=== PATIENT | male | born 1950 | race Caucasian/White ===

== ENCOUNTER 2017-07-22 19:55 | Inpatient (IN) | payer MEDICARE, OTHER ==
[~2017-07-22] VITALS: Ht 177.8 cm; Wt 84.7 kg
[2017-07-22 20:57] LABS: COLLECTION METHOD CLEAN CATCH
[2017-07-22 20:58] LABS: HEMATOCRIT 47.5 % (42.0-52.0); HEMOGLOBIN 16.5 g/dl (13.5-18.0); MEAN CELL VOLUME 86 fl (80.0-100.0); MEAN CORPUSCULAR HEMOGLOBIN 30 pg (27.0-31.0); MEAN CORPUSCULAR HGB CONC 35 g/dl (33.0-37.0); MEAN PLATELET VOLUME 10.7 fl (7.4-10.4); PLATELET COUNT 239 K/mm3 (130-400); RED BLOOD COUNT 5.53 M/mm3 (4.20-5.60); REDCELL DISTRIBUTION WIDTH-CV 13.6 % (11.5-14.5)
[2017-07-22 21:05] LABS: MUCOUS Present /lpf; PH 5 (5-8); SQUAMOUS EPITHELIAL 0-2 /hpf; URINE APPEARANCE Hazy; URINE BACTERIA Rare /hpf; URINE BILIRUBIN Negative (NEGATIVE); URINE BLOOD Negative (NEGATIVE); URINE COLOR Amber; URINE GLUCOSE Negative (NEGATIVE); URINE KETONE Trace (NEGATIVE); URINE LEUKOCYTE ESTERASE Negative (NEGATIVE); URINE NITRATE Negative (NEGATIVE); URINE PROTEIN(semi-quant) 2+ (NEGATIVE); URINE UROBILINOGEN >=4.0 mg/dL (NEGATIVE)
[2017-07-22 21:10] LABS: BAND 24 % (0-10); LYMPHOCYTE 5 % (20.0-51.0); NEUTROPHILS 54 % (42.0-75.2)
[2017-07-22 21:11] LABS: ALBUMIN 3.9 gm/dL (3.5-5.0); BILIRUBIN,TOTAL 1.3 mg/dL (0.0-1.0); CALCIUM 9.6 mg/dL (8.4-10.2); CREATININE, serum 0.97 mg/dL (0.66-1.25); PLATELET ESTIMATE NORMAL (NORMAL); POTASSIUM 3.5 mmol/L (3.4-5.0); TOTAL PROTEIN 7.8 gm/dL (6.4-8.2)
[2017-07-22 21:42] LABS: C-REACTIVE PROTEIN 36.8 mg/dL (0.0-0.9)
[2017-07-23] VITALS (17 sets, daily range): BP systolic 88–148; BP diastolic 41–73; PULSE 80–101; TEMP 96.6–99
[2017-07-23 09:23] LABS: BASO # 0.1 (0.0-0.2); BASO % 0.3 % (0.0-2.0); GRAN # 22.1 (1.4-6.5); GRAN % 92.8 % (42.2-75.2); HEMOGLOBIN 17.6 g/dl (13.5-18.0); LYMPH # 0.6 (1.2-3.4); LYMPH % 2.6 % (20.0-51.0); MEAN CELL VOLUME 89 fl (80.0-100.0); MEAN CORPUSCULAR HEMOGLOBIN 30 pg (27.0-31.0); MEAN CORPUSCULAR HGB CONC 34 g/dl (33.0-37.0); MONO # 0.8 (0.1-0.6); MONO % 3.4 % (1.7-9.3); PLATELET COUNT 316 K/mm3 (130-400); RED BLOOD COUNT 5.89 M/mm3 (4.20-5.60); REDCELL DISTRIBUTION WIDTH-CV 14.3 % (11.5-14.5)
[2017-07-23 09:33] LABS: ALBUMIN 2.8 gm/dL (3.5-5.0); BILIRUBIN,TOTAL 1.4 mg/dL (0.0-1.0); CALCIUM 7.8 mg/dL (8.4-10.2); CREATININE, serum 1.17 mg/dL (0.66-1.25); POTASSIUM 3.8 mmol/L (3.4-5.0)
[2017-07-23 11:21] LABS: HEMATOCRIT 52.2 % (42.0-52.0)
[2017-07-24 00:45] VITALS: BP 105/68; PULSE 97; TEMP 98
[2017-07-24 03:55] VITALS: BP 107/57; PULSE 98; TEMP 97.7
[2017-07-24 07:05] LABS: HEMATOCRIT 40.4 % (42.0-52.0); MEAN CELL VOLUME 91 fl (80.0-100.0); MEAN CORPUSCULAR HEMOGLOBIN 30 pg (27.0-31.0); MEAN CORPUSCULAR HGB CONC 33 g/dl (33.0-37.0); MEAN PLATELET VOLUME 10.9 fl (7.4-10.4); PLATELET COUNT 280 K/mm3 (130-400); RED BLOOD COUNT 4.46 M/mm3 (4.20-5.60); REDCELL DISTRIBUTION WIDTH-CV 14.8 % (11.5-14.5)
[2017-07-24 07:28] LABS: CREATININE, serum 1.23 mg/dL (0.66-1.25); HEMOGLOBIN 13.5 g/dl (13.5-18.0); POTASSIUM 4.3 mmol/L (3.4-5.0)
[2017-07-24 08:03] VITALS: BP 123/68; PULSE 97; TEMP 97.3
[2017-07-24 10:49] LABS: BAND 62 % (0-10); LYMPHOCYTE 2 % (20.0-51.0); NEUTROPHILS 33 % (42.0-75.2); PLATELET ESTIMATE NORMAL (NORMAL)
[2017-07-24 14:07] VITALS: BP 121/71; PULSE 105; TEMP 98.6
[2017-07-24 17:51] VITALS: BP 134/71; PULSE 100; TEMP 98.5
[2017-07-24 21:11] VITALS: BP 102/54; PULSE 95; TEMP 98
[2017-07-25 01:55] VITALS: BP 133/62; PULSE 91; TEMP 98.2
[2017-07-25 05:21] VITALS: BP 141/81; PULSE 79; TEMP 98.9
[2017-07-25 06:38] LABS: HEMATOCRIT 42.9 % (42.0-52.0); MEAN CELL VOLUME 91 fl (80.0-100.0); MEAN CORPUSCULAR HEMOGLOBIN 30 pg (27.0-31.0); MEAN CORPUSCULAR HGB CONC 33 g/dl (33.0-37.0); MEAN PLATELET VOLUME 10.4 fl (7.4-10.4); PLATELET COUNT 265 K/mm3 (130-400); RED BLOOD COUNT 4.74 M/mm3 (4.20-5.60); REDCELL DISTRIBUTION WIDTH-CV 14.9 % (11.5-14.5)
[2017-07-25 06:49] LABS: CALCIUM 7.3 mg/dL (8.4-10.2); CREATININE, serum 0.86 mg/dL (0.66-1.25); MAGNESIUM 3.1 mg/dL (1.6-2.3); POTASSIUM 4.1 mmol/L (3.4-5.0)
[2017-07-25 07:56] LABS: BAND 6 % (0-10); LYMPHOCYTE 6 % (20.0-51.0); NEUTROPHILS 84 % (42.0-75.2); PLATELET ESTIMATE NORMAL (NORMAL)
[2017-07-25 07:57] LABS: HYPOCHROMIA 1+
[2017-07-25 09:25] VITALS: BP 113/63; PULSE 84; TEMP 97.6
[2017-07-25 14:58] VITALS: BP 128/74; PULSE 96; TEMP 98.7
[2017-07-25 17:23] VITALS: BP 188/70; PULSE 93; TEMP 98.7
[2017-07-25 21:34] VITALS: BP 137/73; PULSE 96; TEMP 98.1
[2017-07-26 04:39] VITALS: BP 128/76; PULSE 92; TEMP 98.2
[2017-07-26 07:48] LABS: HEMATOCRIT 39.4 % (42.0-52.0); HEMOGLOBIN 13.3 g/dl (13.5-18.0); MEAN CELL VOLUME 88 fl (80.0-100.0); MEAN CORPUSCULAR HEMOGLOBIN 30 pg (27.0-31.0); MEAN CORPUSCULAR HGB CONC 34 g/dl (33.0-37.0); MEAN PLATELET VOLUME 10.9 fl (7.4-10.4); PLATELET COUNT 288 K/mm3 (130-400); RED BLOOD COUNT 4.49 M/mm3 (4.20-5.60); REDCELL DISTRIBUTION WIDTH-CV 14.8 % (11.5-14.5)
[2017-07-26 07:55] LABS: CREATININE, serum 0.74 mg/dL (0.66-1.25); POTASSIUM 3.9 mmol/L (3.4-5.0)
[2017-07-26 09:41] LABS: BAND 4 % (0-10); EOSINOPHIL 1 % (0-4); LYMPHOCYTE 3 % (20.0-51.0); NEUTROPHILS 86 % (42.0-75.2); PLATELET ESTIMATE NORMAL (NORMAL)
[2017-07-26 10:14] VITALS: BP 134/82; PULSE 94; TEMP 98
[2017-07-26 13:26] VITALS: BP 130/76; PULSE 94; TEMP 97.9
[2017-07-26 17:18] VITALS: BP 135/75; PULSE 93; TEMP 98.1
[2017-07-26 21:45] VITALS: BP 137/79; PULSE 90; TEMP 98
[2017-07-27 01:37] VITALS: BP 119/70; PULSE 92; TEMP 98.3
[2017-07-27 05:23] VITALS: BP 136/77; PULSE 90; TEMP 98.5
[2017-07-27 07:42] LABS: HEMATOCRIT 39.6 % (42.0-52.0); HEMOGLOBIN 13.3 g/dl (13.5-18.0); MEAN CELL VOLUME 88 fl (80.0-100.0); MEAN CORPUSCULAR HEMOGLOBIN 30 pg (27.0-31.0); MEAN CORPUSCULAR HGB CONC 34 g/dl (33.0-37.0); MEAN PLATELET VOLUME 10.6 fl (7.4-10.4); PLATELET COUNT 305 K/mm3 (130-400); RED BLOOD COUNT 4.48 M/mm3 (4.20-5.60); REDCELL DISTRIBUTION WIDTH-CV 14.9 % (11.5-14.5)
[2017-07-27 08:02] LABS: CALCIUM 7.3 mg/dL (8.4-10.2); CREATININE, serum 0.72 mg/dL (0.66-1.25); POTASSIUM 3.9 mmol/L (3.4-5.0)
[2017-07-27 10:10] LABS: BAND 10 % (0-10); BASOPHIL 1 % (0-2); LYMPHOCYTE 8 % (20.0-51.0); NEUTROPHILS 80 % (42.0-75.2)
[2017-07-27 10:11] LABS: PLATELET ESTIMATE NORMAL (NORMAL); TOXIC GRANULATION PRESENT
[2017-07-27 10:34] VITALS: BP 140/82; PULSE 88; TEMP 98.3
[2017-07-27 14:37] VITALS: BP 113/68; PULSE 86; TEMP 96.4
[2017-07-27 17:45] VITALS: BP 132/76; PULSE 74; TEMP 97.6
[2017-07-27 21:57] VITALS: BP 132/78; PULSE 82; TEMP 98.4
[2017-07-28] VITALS (14 sets, daily range): BP systolic 99–146; BP diastolic 60–76; PULSE 67–112; TEMP 97.6–99
[2017-07-28 06:50] LABS: HEMATOCRIT 39.4 % (42.0-52.0); HEMOGLOBIN 12.9 g/dl (13.5-18.0); MEAN CELL VOLUME 90 fl (80.0-100.0); MEAN CORPUSCULAR HEMOGLOBIN 29 pg (27.0-31.0); MEAN CORPUSCULAR HGB CONC 33 g/dl (33.0-37.0); MEAN PLATELET VOLUME 10.9 fl (7.4-10.4); PLATELET COUNT 310 K/mm3 (130-400); REDCELL DISTRIBUTION WIDTH-CV 15.2 % (11.5-14.5)
[2017-07-28 07:02] LABS: CALCIUM 7.4 mg/dL (8.4-10.2); CREATININE, serum 0.72 mg/dL (0.66-1.25); POTASSIUM 4.3 mmol/L (3.4-5.0)
[2017-07-28 08:03] LABS: BAND 19 % (0-10); LYMPHOCYTE 5 % (20.0-51.0); NEUTROPHILS 75 % (42.0-75.2); PLATELET ESTIMATE NORMAL (NORMAL); TOXIC GRANULATION PRESENT
[2017-07-29 01:42] VITALS: BP 122/70; PULSE 80; TEMP 98.3
[2017-07-29 05:25] VITALS: BP 128/64; PULSE 84; TEMP 98.8
[2017-07-29 06:47] LABS: MEAN CELL VOLUME 89 fl (80.0-100.0); MEAN CORPUSCULAR HGB CONC 33 g/dl (33.0-37.0); MEAN PLATELET VOLUME 10.9 fl (7.4-10.4); PLATELET COUNT 331 K/mm3 (130-400); RED BLOOD COUNT 4.04 M/mm3 (4.20-5.60); REDCELL DISTRIBUTION WIDTH-CV 15.3 % (11.5-14.5)
[2017-07-29 06:51] LABS: HEMOGLOBIN 11.9 g/dl (13.5-18.0); MEAN CORPUSCULAR HEMOGLOBIN 29 pg (27.0-31.0)
[2017-07-29 07:00] VITALS: BP 120/65; PULSE 82; TEMP 97.1
[2017-07-29 07:08] LABS: CALCIUM 7.4 mg/dL (8.4-10.2); CREATININE, serum 0.71 mg/dL (0.66-1.25)
[2017-07-29 08:47] LABS: BAND 2 % (0-10); EOSINOPHIL 2 % (0-4); LYMPHOCYTE 5 % (20.0-51.0); NEUTROPHILS 85 % (42.0-75.2); PLATELET ESTIMATE NORMAL (NORMAL)
[2017-07-29 10:30] VITALS: BP 103/61; PULSE 82; TEMP 97.6
[2017-07-29 13:39] VITALS: BP 110/68; PULSE 84; TEMP 97.5
[2017-07-29 17:50] VITALS: BP 125/67; PULSE 77; TEMP 98.3
[2017-07-30 02:51] VITALS: BP 110/53; PULSE 98; TEMP 98.1
[2017-07-30 06:02] VITALS: BP 125/62; PULSE 86; TEMP 98.4
[2017-07-30 07:06] LABS: HEMATOCRIT 40.8 % (42.0-52.0); HEMOGLOBIN 13.4 g/dl (13.5-18.0); MEAN CELL VOLUME 90 fl (80.0-100.0); MEAN CORPUSCULAR HEMOGLOBIN 30 pg (27.0-31.0); MEAN CORPUSCULAR HGB CONC 33 g/dl (33.0-37.0); MEAN PLATELET VOLUME 11.1 fl (7.4-10.4); RED BLOOD COUNT 4.55 M/mm3 (4.20-5.60); REDCELL DISTRIBUTION WIDTH-CV 15.4 % (11.5-14.5)
[2017-07-30 07:12] LABS: PLATELET COUNT 440 K/mm3 (130-400)
[2017-07-30 07:16] LABS: CALCIUM 7.6 mg/dL (8.4-10.2); CREATININE, serum 0.72 mg/dL (0.66-1.25); POTASSIUM 4.2 mmol/L (3.4-5.0)
[2017-07-30 07:59] LABS: BAND 7 % (0-10); LYMPHOCYTE 4 % (20.0-51.0); NEUTROPHILS 87 % (42.0-75.2); PLATELET ESTIMATE NORMAL (NORMAL)
[2017-07-30 13:37] VITALS: BP 114/59; PULSE 78; TEMP 97.9
[2017-07-30 17:57] VITALS: BP 132/72; PULSE 80; TEMP 98.4
[2017-07-30 21:07] VITALS: BP 131/63; PULSE 84; TEMP 98.3
[2017-07-31] VITALS (7 sets, daily range): BP systolic 106–142; BP diastolic 52–74; PULSE 46–91; TEMP 97.4–98.7
[2017-07-31 07:02] LABS: HEMATOCRIT 37.1 % (42.0-52.0); HEMOGLOBIN 12.1 g/dl (13.5-18.0); MEAN CELL VOLUME 90 fl (80.0-100.0); MEAN CORPUSCULAR HEMOGLOBIN 29 pg (27.0-31.0); MEAN CORPUSCULAR HGB CONC 33 g/dl (33.0-37.0); MEAN PLATELET VOLUME 10.6 fl (7.4-10.4); PLATELET COUNT 447 K/mm3 (130-400); RED BLOOD COUNT 4.12 M/mm3 (4.20-5.60); REDCELL DISTRIBUTION WIDTH-CV 15.4 % (11.5-14.5)
[2017-07-31 07:18] LABS: CALCIUM 7.3 mg/dL (8.4-10.2); CREATININE, serum 0.72 mg/dL (0.66-1.25); POTASSIUM 4.1 mmol/L (3.4-5.0)
[2017-07-31 09:54] LABS: BAND 6 % (0-10); EOSINOPHIL 1 % (0-4); LYMPHOCYTE 7 % (20.0-51.0); NEUTROPHILS 80 % (42.0-75.2)
[2017-07-31 09:57] LABS: PLATELET ESTIMATE INCREASED (NORMAL)
[2017-07-31 09:58] LABS: HYPOCHROMIA 1+
[2017-08-01 01:38] VITALS: BP 138/64; PULSE 86; TEMP 98
[2017-08-01 04:40] VITALS: BP 120/63; PULSE 83; TEMP 98.3
[2017-08-01 06:43] LABS: MEAN CELL VOLUME 89 fl (80.0-100.0); MEAN CORPUSCULAR HGB CONC 33 g/dl (33.0-37.0); MEAN PLATELET VOLUME 10.5 fl (7.4-10.4); PLATELET COUNT 514 K/mm3 (130-400); RED BLOOD COUNT 4.08 M/mm3 (4.20-5.60); REDCELL DISTRIBUTION WIDTH-CV 15.2 % (11.5-14.5)
[2017-08-01 06:49] LABS: HEMATOCRIT 36.1 % (42.0-52.0); HEMOGLOBIN 11.9 g/dl (13.5-18.0); MEAN CORPUSCULAR HEMOGLOBIN 29 pg (27.0-31.0)
[2017-08-01 06:50] LABS: CALCIUM 7.3 mg/dL (8.4-10.2); CREATININE, serum 0.72 mg/dL (0.66-1.25); POTASSIUM 3.8 mmol/L (3.4-5.0)
[2017-08-01 09:09] VITALS: BP 112/54; PULSE 89; TEMP 98.3
[2017-08-01 09:22] LABS: BAND 13 % (0-10); LYMPHOCYTE 12 % (20.0-51.0); NEUTROPHILS 74 % (42.0-75.2)
[2017-08-01 09:23] LABS: PLATELET ESTIMATE INCREASED (NORMAL)
[2017-08-01] MEDS ORDERED: ZYVOX 600MG600 MG PO (10:01)
[2017-08-01] MEDS ORDERED: NORCO 325 MG-51 TAB PO (10:03)
[2017-08-01 14:14] VITALS: BP 115/68; PULSE 75; TEMP 98.4
[2017-08-01 17:43] VITALS: BP 116/65; BP 116/653; PULSE 86; TEMP 98.1
== END 2017-08-01 18:45 | disposition home or self-care (01) | DRG 853 ==
LOC: COL.ER 19:55 → SURG 22:49 → JCC 22:49 → SURG 07-23 17:00
PROVIDERS: Emergency Medicine; Nurse Practitioner Family; Physician Assistant; Surgery
PROC: 0DBB0ZZ Excision of Ileum, Open Approach (ICD-10-PCS; principal; 2017-07-22 23:30)
PROC: 0D7 Gastrointestinal System, Dilation (ICD-10-PCS; 2017-07-28)
PROC: 0D9 Gastrointestinal System, Drainage (ICD-10-PCS; 2017-07-28)
DX: A41.9 Sepsis, unspecified organism (principal); K65.1 Peritoneal abscess; T81.4XXA Infection following a procedure, initial encounter; E87.1 Hypo-osmolality and hyponatremia; K56.7 Ileus, unspecified; T18.3XXA Foreign body in small intestine, initial encounter; L08.9 Local infection of the skin and subcutaneous tissue, unspecified; E88.09 Other disorders of plasma-protein metabolism, not elsewhere classified; R09.02 Hypoxemia; F17.220 Nicotine dependence, chewing tobacco, uncomplicated
CPT/HCPCS: 99223; 99232-AI; 99233-AI; A4314; A9284; C1729; J0171; J0696; J1650; J2060; J2250; J2270; J2405; J2704; J2710; J3010; J3480; J7030; J7040; J7050; Q9967

== ENCOUNTER 2019-07-29 13:56 | Inpatient (IN) | payer MEDICARE, OTHER ==
[~2019-07-29] VITALS: Ht 177.8 cm; Wt 90.9 kg
[~2019-07-29 13:56] MED LIST: NORCO 325 MG-51 TAB PO; ZYVOX 600MG600 MG PO
[2019-07-29 14:51] LABS: HEMOGLOBIN 14.4 g/dl (13.5-18.0); MEAN CELL VOLUME 86 fl (80.0-100.0); MEAN CORPUSCULAR HEMOGLOBIN 29 pg (27.0-31.0); MEAN CORPUSCULAR HGB CONC 34 g/dl (33.0-37.0); MEAN PLATELET VOLUME 12.4 fl (7.4-10.4); PLATELET COUNT 259 K/mm3 (130-400); REDCELL DISTRIBUTION WIDTH-CV 15.2 % (11.5-14.5)
[2019-07-29 14:55] LABS: INR 1.7 (0.8-3.0); PROTHROMBIN TIME 20.4 SECONDS (9.7-12.8)
[2019-07-29 14:57] LABS: PARTIAL THROMBOPLASTIN TIME 28.7 SECONDS (26.0-37.0)
[2019-07-29 15:04] LABS: ALANINE AMINOTRANSFERASE 144 U/L (21-72); ALBUMIN 3.9 gm/dL (3.5-5.0); ALKALINE PHOSPHATASE 297 U/L (50-136); ANION GAP 16 mmol/L (7-16); AST,SGOT 179 U/L (15-37); BILIRUBIN,TOTAL 19.6 mg/dL (0.0-1.0); BLOOD UREA NITROGEN 32 mg/dL (9-20); CALCIUM 8.7 mg/dL (8.4-10.2); CARBON DIOXIDE 21 mmol/L (22-30); CHLORIDE 98 mmol/L (98-107); CREATININE, serum 1.01 (0.66-1.25); GLUCOSE 110 mg/dL (74-106); LIPASE 155 U/L (23-300); SODIUM 135 mmol/L (137-145); TOTAL PROTEIN 8.9 gm/dL (6.4-8.2)
[2019-07-29 15:24] LABS: TROPONIN-I < 0.012 ng/mL (0.000-0.035)
[2019-07-29 15:25] LABS: C-REACTIVE PROTEIN 21.7 mg/dL (0.0-0.9)
[2019-07-29 15:28] LABS: POTASSIUM 3.5 mmol/L (3.4-5.0)
[2019-07-29 16:22] LABS: BAND 8 % (0-10); LYMPHOCYTE 8 % (20.0-51.0); NEUTROPHILS 77 % (42.0-75.2); PLATELET ESTIMATE NORMAL (NORMAL)
[2019-07-29 16:23] LABS: ANISOCYTOSIS 1+
[2019-07-29 20:26] LABS: COLLECTION METHOD CLEAN CATCH
[2019-07-29 20:40] LABS: MUCOUS Present /lpf; PH 6 (5-8); SQUAMOUS EPITHELIAL 0-2 /hpf; URINE APPEARANCE Hazy; URINE BACTERIA None Seen /hpf; URINE BILIRUBIN Positive (NEGATIVE); URINE BLOOD 1+ (NEGATIVE); URINE COLOR Amber; URINE GLUCOSE Negative (NEGATIVE); URINE KETONE Trace (NEGATIVE); URINE LEUKOCYTE ESTERASE Negative (NEGATIVE); URINE NITRATE Negative (NEGATIVE); URINE PROTEIN(semi-quant) 1+ (NEGATIVE); URINE UROBILINOGEN >=4.0 mg/dL (NEGATIVE)
--- NOTE | 2019-07-29 21:08 | NUR ---
PT report received from ED nurse regarding PT admission to unit and transfer from ED. Upon arrival to the unit PT is educated on room orientation, how to use call light which is within reach. Will continue to monitor.
[2019-07-29 21:22] VITALS: BP 114/63; PULSE 86; TEMP 98.4
[2019-07-29 23:36] VITALS: BP 109/65; PULSE 90; TEMP 99.2
[2019-07-30] VITALS (9 sets, daily range): BP systolic 105–121; BP diastolic 58–84; PULSE 57–81; TEMP 98.1–99.4
--- NOTE | 2019-07-30 04:30 | NUR ---
PT awake in bed during rounds. PT reports that he has no pain but needs to use restroom. Upon returning to bed PT states he does not want to wear his SCD's "for now". Education provided on purpose of SCD's to reduce risk of DVT with example used about how there are reports of increased risk of DVT while stationary on a plane and PT will be stationary longer than that while inpatient. PT states understanding and replies that "maybe later" he will put them back on when his legs have had a rest.
--- NOTE | 2019-07-30 05:33 | NUR ---
PT educated on consent for ERCP in am and consent form signed. PT states understanding of education.
--- NOTE | 2019-07-30 05:50 | NUR ---
NS bag still infusing D/T IV antibiotics interupting continous NS infusion. Will provide report to dayshift Nurse regarding need to scan and start bag when empty.
--- NOTE | 2019-07-30 06:58 | NUR ---
PT REPORT GIVEN TO ROSSI BRADSHAW. PT RESTING IN BED PEACEFULLY WITH EYES OPEN AND NO WANTS/NEEDS AT THIS TIME.
[2019-07-30 09:05] LABS: MEAN CELL VOLUME 87 fl (80.0-100.0); MEAN CORPUSCULAR HGB CONC 34 g/dl (33.0-37.0); PLATELET COUNT 269 K/mm3 (130-400); RED BLOOD COUNT 4.09 M/mm3 (4.20-5.60); REDCELL DISTRIBUTION WIDTH-CV 15.5 % (11.5-14.5)
[2019-07-30 09:07] LABS: HEMATOCRIT 35.4 % (42.0-52.0); MEAN CORPUSCULAR HEMOGLOBIN 29 pg (27.0-31.0)
[2019-07-30 09:12] LABS: ALBUMIN 2.9 gm/dL (3.5-5.0); BILIRUBIN UNCONJUGATED 1.5 mg/dL (0.0-1.1); BILIRUBIN,DIRECT 14.4 mg/dL (0.0-0.4); CALCIUM 7.7 mg/dL (8.4-10.2); POTASSIUM 3.5 mmol/L (3.4-5.0); TOTAL PROTEIN 6.9 gm/dL (6.4-8.2)
[2019-07-30 10:15] LABS: BAND 5 % (0-10); LYMPHOCYTE 7 % (20.0-51.0); NEUTROPHILS 83 % (42.0-75.2); PLATELET ESTIMATE NORMAL (NORMAL)
--- NOTE | 2019-07-30 14:49 | NUR ---
Plan: To return home. Patient [place] of [facility] in [facility]. SM reproted that he does not have a care support, and did not want to list anyone as his EMR. Patient also declined a DPOA at this time. Assess: SW met with patient at his bedside. Patient reported that he does not utilize any DME, and that he does not currently have a PCP, and does not have a follow up appointment. Patient reported that he gets his medications from [facility], with some concerns due to insurance. Patient declined a need for services at this time. However Patient did report a concern about not having a PCP that could cater to patients limited income. Action: SW educated Patient about community resources and offered to print off a list of PCP providers for SM to choose from. Facilities are normally closed, however SW explained to Patient if he chooses a PCP the weekday SW would be able to assist with scheduling a follow up appointment for patient. SW also will locate a medical assistance program card for patient to utilize when having difficulties with obtaining medications. PAtient will also be provided with a community [email or web address] packet. SHYANN will follow up
--- NOTE | 2019-07-30 18:30 | NUR ---
PT report received from Grzegorz BRADSHAW. PT sittign in bed with eyes open and no complaints, want/needs at this time. IV fluids infusing with no complications. Call light within reach and no s/s of distress noted. Will continue to monitor.
--- NOTE | 2019-07-30 20:00 | NUR ---
PT resting in bed with c/o nausea and general malaise. PT is able to make wants/needs known and call light is within reach. PT is noted to have some slight redness proximal to his left AC where his IV is placed. PT does not have complaints of pain or discomfort at IV site or wit the infusion of fluids. PT has had his arm wrapped with richard wrap to help decrease incidences of occlusion with bending his arms and this redness is noted to be located at the top of the richard wrap where the velcro strip is located. Richard wrap removed and replaced further down his arm and away from the red area. Will continue to monitor.
--- NOTE | 2019-07-30 20:05 | NUR ---
PT refuses SCD at this time stating that they make him uncomfortable and he wants to be able to have full mobility d/t Nausea and sense that he may vomit.
--- NOTE | 2019-07-31 01:49 | NUR ---
PT is noted to be resting peacefully in bed with eyes closed and regular breathing noted and no verbal s/s of pain noted. PT is easy to arouse and reports that he continues to have pain of 7/10. Education provided that it is too early for his next dose of morphine but that this film writer will check in on PT when the pain medication is available. PT states understanding and closes his eyes and appears to be ready to fall back to sleep.
[2019-07-31 04:15] VITALS: BP 115/72; PULSE 70; TEMP 97.5
--- NOTE | 2019-07-31 04:46 | NUR ---
PT resting in bed with eyes open. PT states that he needs to use restroom. PT is slightly unsteady on his feet and is surprised by this fact. Education provided that he has been taking narcotic pain medication and that this is not uncommon with that type of medication. Stand by assist provided and PT voids in toilet. PT urine remains similiar to flourescent orange/yellow but appears to be teen counselor than when PT was admitted. PT assisted back to bed and provided 8 ounces of ice and 28 ounces of water. Will continue to monitor. Call light within reach and no s/s of distress noted.
--- NOTE | 2019-07-31 06:45 | NUR ---
PT report given to Karon BRADSHAW. PT resting peacefully in bed with eyes closed and IV infusing with no s/s of complications. PT presents with no s/s of distress.
--- NOTE | 2019-07-31 08:30 | NUR ---
Assessment charted. Patient A&Ox3, reporting nausea, did not request nausea medication. VSS. IV CDI, fluid infusing. Patient requested ice chips and nurse encouraged patient to eat small amounts at a time. Patient verbalized an understanding. No further needs expressed from patient. Call light within reach
[2019-07-31 08:41] VITALS: BP 143/74; PULSE 68; TEMP 97.8
[2019-07-31 09:28] LABS: BASO # 0.1 (0.0-0.2); BASO % 0.4 % (0.0-2.0); EOS # 0.1 (0.0-0.7); EOS % 0.4 % (0-4.0); GRAN # 11.8 (1.4-6.5); GRAN % 85.2 % (42.2-75.2); HEMATOCRIT 37.2 % (42.0-52.0); HEMOGLOBIN 12.3 g/dl (13.5-18.0); LYMPH # 0.9 (1.2-3.4); LYMPH % 6.5 % (20.0-51.0); MEAN CELL VOLUME 88 fl (80.0-100.0); MEAN CORPUSCULAR HEMOGLOBIN 29 pg (27.0-31.0); MEAN CORPUSCULAR HGB CONC 33 g/dl (33.0-37.0); MEAN PLATELET VOLUME 10.7 fl (7.4-10.4); MONO # 0.6 (0.1-0.6); MONO % 4.5 % (1.7-9.3); PLATELET COUNT 333 K/mm3 (130-400); RED BLOOD COUNT 4.24 M/mm3 (4.20-5.60); REDCELL DISTRIBUTION WIDTH-CV 15.9 % (11.5-14.5)
[2019-07-31 09:45] LABS: INR 1.4 (0.8-3.0); PROTHROMBIN TIME 16.4 SECONDS (9.7-12.8)
[2019-07-31 09:49] LABS: ALBUMIN 3.1 gm/dL (3.5-5.0); CALCIUM 7.8 mg/dL (8.4-10.2); CREATININE, serum 1.13 (0.66-1.25); POTASSIUM 3.4 mmol/L (3.4-5.0); TOTAL PROTEIN 7.3 gm/dL (6.4-8.2)
[2019-07-31 12:24] VITALS: BP 127/74; PULSE 67; TEMP 98.6
--- NOTE | 2019-07-31 16:11 | NUR ---
Gave resources left by previous worker.
[2019-07-31 16:14] VITALS: BP 131/72; PULSE 70; TEMP 98.9
--- NOTE | 2019-07-31 17:52 | NUR ---
Patient rested in bed throughout the shift. A&O. IV CDI, fluids infusing.Complaints of nausea and did not have an appetite. Nurse encouraged patient to eat. Patient had pain with movement, pain medication administered when requested. No further needs expressed from patient. Call light within reach
[2019-07-31 19:55] VITALS: BP 119/68; PULSE 85; TEMP 98.7
[2019-07-31 23:39] VITALS: BP 121/73; PULSE 82; TEMP 97.6
[2019-08-01 04:27] VITALS: BP 115/70; PULSE 82; TEMP 98.1
--- NOTE | 2019-08-01 06:00 | NUR ---
Patient continues to have pain in abdomen. Morphine given 3 times this shift. Patients pain is picking up this am. No complaints of nausea. Explained that he can't eat today until they decide if he can have the procedure. He verbalized understanding. He stated he is feeling worse this morning but his pain has been better throughout the night. No other changes at this time. Call light within reach.
[2019-08-01 06:32] LABS: HEMOGLOBIN 11.6 g/dl (13.5-18.0); MEAN CELL VOLUME 88 fl (80.0-100.0); MEAN CORPUSCULAR HEMOGLOBIN 29 pg (27.0-31.0); MEAN CORPUSCULAR HGB CONC 33 g/dl (33.0-37.0); MEAN PLATELET VOLUME 10.9 fl (7.4-10.4); PLATELET COUNT 345 K/mm3 (130-400); RED BLOOD COUNT 3.95 M/mm3 (4.20-5.60)
[2019-08-01 06:47] LABS: HEMATOCRIT 34.8 % (42.0-52.0)
[2019-08-01 06:56] LABS: ALBUMIN 2.7 gm/dL (3.5-5.0); BILIRUBIN,TOTAL 6.9 mg/dL (0.0-1.0); CALCIUM 7.2 mg/dL (8.4-10.2); CREATININE, serum 1.03 (0.66-1.25); POTASSIUM 3.7 mmol/L (3.4-5.0); TOTAL PROTEIN 6.5 gm/dL (6.4-8.2)
[2019-08-01 07:36] LABS: ANISOCYTOSIS 1+; BAND 8 % (0-10); BASOPHIL 1 % (0-2); LYMPHOCYTE 4 % (20.0-51.0); METAMYELOCYTE 2 % (0-0); NEUTROPHILS 81 % (42.0-75.2)
[2019-08-01 07:37] LABS: INR 1.3 (0.8-3.0); PROTHROMBIN TIME 15.8 SECONDS (9.7-12.8)
[2019-08-01 08:31] VITALS: BP 100/63; PULSE 81
--- NOTE | 2019-08-01 10:07 | NUR ---
RECEIVED REPORT FROM GUN PERFORATOR LOADER. PATIENT WAS MOANING IN BED AND MAKING NOISES WHEN HE BREATHED. PATIENT IS GETTING PAIN MEDICATION Q2-3H. PATIENT IS NPO PER NURSING DISGRESSION DUE TO A POSSIBLE CRP TODAY. NO OTHER COMPLAINTS AT THIS TIME. PATIENT IS RESTING IN BED AT EASE RIGHT NOW.
--- NOTE | 2019-08-01 10:57 | NUR ---
PATIENT IS RESTING IN BED
[2019-08-01 11:43] VITALS: BP 112/62; PULSE 82; TEMP 98.6
--- NOTE | 2019-08-01 15:27 | NUR ---
PATIENT'S PAIN IS VERY WELL CONTROLLED WITH NORCO AND MORPHINE. PATIENT IS REQUESTING TO TALK TO ARCH CUSHION PRESS OPERATOR AND SHE HAS BEEN NOTIFIED AT THIS TIME. PATIENT HAS QUESTIONS FOR THE DOCTOR IN THE MORNING ABOUT TAKING A BIOPSY OF THE LIVER. PATIENT WAS ABLE TO EAT A COUPLE BITES OF MASHED POTATOES AT LUNCH TIME. PATIENT IS NOW ON ZOSYN INSTEAD OF OTHER ANTIBIOTICS AND IS TOLERATING THIS JUST FINE. CALL LIGHT WITHIN REACH AND CALLS IF HE NEEDS ANYTHING
--- NOTE | 2019-08-01 15:56 | NUR ---
Skin assessment reveals scabbed over sores on Rt and Lt upper arm. Pt states that "They are always there". Otherwise no signs of skin breakdown any other sites. Cap refill is >3 seconds Lung sounds are clear. Abd is distended and firm Bowel sounds are hypoactive all four quadrants. S1 and S2 present. Solid Waste Collector is firm and only slightly greater in right hand. PERRLA A&O x3
--- NOTE | 2019-08-01 16:03 | NUR ---
Pt reports only intermittent pain - mostly upon movement but occasional sharp pain in abd. Did report tenderness when I palpated RLQ. Heparin administered per orders. Pt is resting with call light in reach and calls if needs anything.
--- NOTE | 2019-08-01 16:47 | NUR ---
PATIENT WAS GIVEN ANOTHER DOSE OF MORPHINE TO HELP WITH BREAKTHROUGH PAIN. HE IS LAYING IN BED COMFORTABLE AT THIS TIME. DENYING ANY OTHER NEEDS AT THIS POINT AND TIME.
--- NOTE | 2019-08-01 16:53 | NUR ---
Pt states pain is still intermittent. Pt requested morphine amount to stay the same - at 2 mg.
--- NOTE | 2019-08-01 17:40 | NUR ---
PATIENT IS RESTING IN BED AT THIS TIME, COMFORTABLE. THE eMAR WAS UPDATED SO THE PATIENT GETS SCHEDULED NORCO AND MORPHINE WAS SCHEDULED AT DIFFERENT TIMES SO BOTH THESE MEDICATIONS ARE KEEPING HIM COMFORTABLE. HE DID REPORT A 0/10 PAIN FOR ME EARLIER IF HE DOES NOT MOVE. HE IS NO LONGER MOANING AND GROWNING LIKE HE WAS WHEN I TOOK OVER. HE WAS ABLE TO EAT A COUPLE BITES OF LUNCH. ZOSYN RAN TODAY AND PATIENT HANDLED IT WELL WITH NO REACTIONS. WILL PASS ON INFORMATION UPON THEIR ARRIVAL.
--- NOTE | 2019-08-01 18:40 | NUR ---
PT report received from terrance RN and deputy director of nursing. PT greets this principal technical writer and states that he is "happy" that this principal technical writer is caring for him this evening. PT is resting peacefully in bed with no s/s of distress noted. PT has call light within reach and a glass of ice and a bottle of water on bedside table within reach. PT appears less jaundiced since this principal technical writer's last shift Thursday night. PT states that he has a little bit of pain and nausea but that he is doing fine at this time. Education provided on Zofran IV and Morphine IV orders and PT decides to wait for the Zofran until he can get his dose of Morphine to reduce risk of ill effects. PT adamantly expresses his desire to only recieve 2mg of morphine even though he can have up to 4mg IV Q4H. Will continue to monitor.
[2019-08-01 20:04] VITALS: BP 125/68; PULSE 87; TEMP 98.9
--- NOTE | 2019-08-01 21:00 | NUR ---
PT assisted to restroom where he voids and is noted to have urine that appears clear and less orange than this radio script writer's last shift on Thursday Night. PT ambulated with a steady gait and transfers himself in/out of bed without difficulty. Will continmue to monitor. Call light remains within reach.
[2019-08-01 23:18] VITALS: BP 113/60; PULSE 86; TEMP 98.5
[2019-08-02] VITALS (10 sets, daily range): BP systolic 91–128; BP diastolic 53–72; PULSE 71–84; TEMP 98.4–99.2
--- NOTE | 2019-08-02 01:42 | NUR ---
PT a&oX4 resting in bed with eyes open and tv off. PT is noted to have some nausea and making pain like sounds. PT educated on pain and anti-emesis medication available and PT states that he would like to have both when the IV morphine is available. PT has call light within reach and beverages on his bedside table. No s/s of distress noted. Will continue to monitor.
--- NOTE | 2019-08-02 03:41 | NUR ---
As this handbook writer was making rounds PT was noted to be lying in bed making pain like sounds. When this handbook writer assessed PT pain level PT stated that he was a little nauseaus and that his pain was starting to get up to a 7 or an 8 out of 10. This handbook writer educated PT that he had both IV zofran available for Nausea as well as another dose of up to 4mg IV Morphine available. PT requests PRN zofran and 2mg of Morphine at this time. Medication given per AUG. Will continue to monitor.
--- NOTE | 2019-08-02 05:21 | NUR ---
PT noted to be resting in bed on his right side when this typewriter mechanic entered room to hang next round of IV antibiotics. PT is noted to be making periodic sounds consistent with pain, nausea, or general malaise. PT did not open eyes while this typewriter mechanic was in the room. Will continue to monitor.
--- NOTE | 2019-08-02 06:28 | NUR ---
PT opens eyes as thisa writer producer enters room to clear IV pump volumes and administer scheduled [place]. PT states that he is happy that he can take a pain med because he has pain of 6/10 to abdomen right now.
[2019-08-02 06:38] LABS: HEMOGLOBIN 10.7 g/dl (13.5-18.0); MEAN CELL VOLUME 90 fl (80.0-100.0); MEAN CORPUSCULAR HEMOGLOBIN 30 pg (27.0-31.0); MEAN CORPUSCULAR HGB CONC 33 g/dl (33.0-37.0); MEAN PLATELET VOLUME 10.9 fl (7.4-10.4); PLATELET COUNT 379 K/mm3 (130-400); RED BLOOD COUNT 3.62 M/mm3 (4.20-5.60); REDCELL DISTRIBUTION WIDTH-CV 16.2 % (11.5-14.5)
[2019-08-02 06:41] LABS: INR 1.6 (0.8-3.0); PROTHROMBIN TIME 18.7 SECONDS (9.7-12.8)
[2019-08-02 06:45] LABS: HEMATOCRIT 32.6 % (42.0-52.0)
[2019-08-02 06:51] LABS: ALBUMIN 2.7 gm/dL (3.5-5.0); BILIRUBIN,TOTAL 5.9 mg/dL (0.0-1.0); CREATININE, serum 1.03 (0.66-1.25); POTASSIUM 3.6 mmol/L (3.4-5.0); TOTAL PROTEIN 6.4 gm/dL (6.4-8.2)
[2019-08-02 07:39] LABS: BAND 11 % (0-10); LYMPHOCYTE 5 % (20.0-51.0); NEUTROPHILS 79 % (42.0-75.2); PLATELET ESTIMATE NORMAL (NORMAL)
--- NOTE | 2019-08-02 10:26 | NUR ---
SHYANN met with the patient to review discharge plan and to follow up on preference for a PCP. The patient reports that he still plans to return home upon discharge. He states that he has not looked over the list of PCP's yet and was not interested in looking at the list at this time. The patient informed SHYANN that he used to have Medicaid and was kicked off of it a month ago. He states that he would like re-apply for Medicaid. SHYANN consulted Financial Counseling. SHYANN also discussed DPOA-HC and next-of-kin. The patient reports that he is not interested in completing a DPOA-HC as this time. He states that his little brother, Jaison Fried (ph#[phone]), is his next-of-kin. He states that Jaison should be coming up from [place], [place], to visit him today. The patient had no other questions for SHYANN at this time. SW to continue to follow.
--- NOTE | 2019-08-02 18:30 | NUR ---
PT RECIEVED PLASMA TRANSFUSION THIS AM, WENT DOWN FOR ERCP THIS AFTERNOON. PT RETURNED TO FLOOR. STATED HE WAS FEELING GOOD AFTER PROCEDURE. POST-OP VITALS OBTIANED, WAS UNABLE TO ENTER INTO COMPUTER DUE TO MACHINE CLEARING HISTORY, REVIEWED THEM PRIOR AND APPEARED TO HAVE REMAINED WNL. HAS RECIEVED PAIN MEDS NEEDED AND RELIEVED PAIN FOR AWHILE THEN WOULD WEAR OFF AND CALL STAFF AT THAT POINT. NO OTHER ISSUES VOICED THIS SHIFT.
[2019-08-03 00:45] VITALS: BP 126/62; PULSE 81; TEMP 98.4
[2019-08-03 05:23] VITALS: BP 128/67; PULSE 80; TEMP 98.6
[2019-08-03 07:00] LABS: BASO # 0.1 (0.0-0.2); BASO % 0.3 % (0.0-2.0); EOS # 0.2 (0.0-0.7); HEMOGLOBIN 10.1 g/dl (13.5-18.0); LYMPH # 1.2 (1.2-3.4); LYMPH % 6.4 % (20.0-51.0); MEAN CELL VOLUME 90 fl (80.0-100.0); MEAN CORPUSCULAR HEMOGLOBIN 29 pg (27.0-31.0); MEAN CORPUSCULAR HGB CONC 33 g/dl (33.0-37.0); MEAN PLATELET VOLUME 10.5 fl (7.4-10.4); MONO # 0.8 (0.1-0.6); MONO % 4.2 % (1.7-9.3); PLATELET COUNT 387 K/mm3 (130-400); RED BLOOD COUNT 3.44 M/mm3 (4.20-5.60); REDCELL DISTRIBUTION WIDTH-CV 16.1 % (11.5-14.5)
--- NOTE | 2019-08-03 07:01 | NUR ---
Patient was able to rest this shift, scheudled pain medication given as ordered, no breakthrough pain reported. Patient remained afebrile this shift, antibiotics given as ordered. Patient O2 saturations run in low 90s and were found to be in the 80's while sleeping. This nurse brought in a nasal canula for patient, patient refused. Educated patient on oxygen use, patient continued to refuse. Patient was able to void, no complaints of pain.
[2019-08-03 07:15] LABS: ALBUMIN 2.5 gm/dL (3.5-5.0); CALCIUM 7.1 mg/dL (8.4-10.2); CREATININE, serum 0.86 (0.66-1.25); POTASSIUM 3.3 mmol/L (3.4-5.0); TOTAL PROTEIN 6.2 gm/dL (6.4-8.2)
[2019-08-03 07:55] VITALS: BP 119/65; PULSE 76; TEMP 97.3
[2019-08-03 08:16] LABS: INR 1.5 (0.8-3.0); PROTHROMBIN TIME 18.1 SECONDS (9.7-12.8)
[2019-08-03 12:23] VITALS: BP 121/54; PULSE 77; TEMP 97.4
--- NOTE | 2019-08-03 13:17 | NUR ---
Dr Beyer notified of consult.
[2019-08-03 16:30] VITALS: BP 108/68; PULSE 78; TEMP 98.1
--- NOTE | 2019-08-03 20:40 | NUR ---
PT AT BEDSIDE COMPLAINING OF PAIN 11/22. MORPHINE GIVEN ALONG WITH OTHER MEDICATIONS. TABLE AND CALL LIGHT AND DRINKS WITHIN REACH AT BEDSIDE. ABDOMEN ROUNDED AND SLIGHTLY FIRM. PT SIGNED CONSENT FOR SURGERY TOMORROW. AWARE OF NO FOOD ORDER FOR AFTER MIDNIGHT AND CLEAR LIQUIDS UNTIL 0400. PT PLEASANT AND WANTED ME TO METER/RELAY TECHNICIAN LIGHTS FOR HIM TO SLEEP. PT HAS NO OTHER NEEDS AT THIS TIME.
[2019-08-03 20:42] VITALS: BP 120/66; PULSE 83; TEMP 99.2
[2019-08-04] VITALS (13 sets, daily range): BP systolic 103–131; BP diastolic 65–78; PULSE 71–83; TEMP 98.3–99.7
--- NOTE | 2019-08-04 01:00 | NUR ---
Patient complianing of level 8 pain to abdominal area. Given PRN Morphine as requested for pain at this time. Voices no further questions, needs, or concerns at this time.
--- NOTE | 2019-08-04 05:04 | NUR ---
PT IN BED EASILY AWOKEN. PAIN REPORTED AT 5/10. ANTIBIOTICS HUNG, CONSENT SIGNED FOR SURGERY. PT UNDERSTANDING NEED FOR SURGERY. PT OVERALL PLEASANT AND HUMOROUS THROUGHOUT SHIFT. UNEVENTFUL SHIFT, CALL LIGHT AT BEDSIDE. POSTASSIUM RECHECK SET FOR MORNING.
--- NOTE | 2019-08-04 07:40 | NUR ---
Assessment charted. Patient A&Ox3. VSS. IV CDI, fluids infusing. Reporting pain in RLQ, no pain medication requested. Patient NPO for procedure. Patient is slightly jaundice. No further needs expressed from patient. Call light within reach
[2019-08-04 08:06] LABS: ALBUMIN 2.5 gm/dL (3.5-5.0); CALCIUM 7.1 mg/dL (8.4-10.2); CREATININE, serum 0.79 (0.66-1.25); POTASSIUM 3.5 mmol/L (3.4-5.0); TOTAL PROTEIN 6.1 gm/dL (6.4-8.2)
[2019-08-04 08:08] LABS: MEAN CELL VOLUME 90 fl (80.0-100.0); MEAN CORPUSCULAR HEMOGLOBIN 29 pg (27.0-31.0); MEAN CORPUSCULAR HGB CONC 33 g/dl (33.0-37.0); MEAN PLATELET VOLUME 10.7 fl (7.4-10.4); PLATELET COUNT 421 K/mm3 (130-400); RED BLOOD COUNT 3.41 M/mm3 (4.20-5.60); REDCELL DISTRIBUTION WIDTH-CV 16.2 % (11.5-14.5)
[2019-08-04 08:13] LABS: HEMATOCRIT 30.8 % (42.0-52.0)
[2019-08-04 08:37] LABS: INR 1.3 (0.8-3.0); PROTHROMBIN TIME 15.6 SECONDS (9.7-12.8)
[2019-08-04 09:16] LABS: ANISOCYTOSIS 1+; BAND 23 % (0-10); LYMPHOCYTE 5 % (20.0-51.0); NEUTROPHILS 71 % (42.0-75.2)
[2019-08-04 09:17] LABS: PLATELET ESTIMATE INCREASED (NORMAL)
--- NOTE | 2019-08-04 10:15 | NUR ---
Patient taken by cart for procedure. No further needs expressed from patient.
--- NOTE | 2019-08-04 12:30 | NUR ---
Patient arrived to floor from PACU via bed. Patient is alert and oriented, but sleepy. Patient becomes mildly agitated while awake, reports he is uncomfortable and requests food. Informed patient that he was on a clear lquid diet and he stated he would take water and eat something later. Gauze dressing to ABD appears to be CDI. Patient denies further needs at this time, call light within reach, bed alarm on.
--- NOTE | 2019-08-04 18:26 | NUR ---
Patient up to bathroom with 1x assist. Patient remains alert and orineted at this time. Pain medication administered per order per patient request. Patient is tolerating PO intake well and denies nausea. No further needs at this time, call light within reach.
--- NOTE | 2019-08-04 20:00 | NUR ---
PT IS AWAKE, ALERT, OX4, REPORTS PAIN TO RUQ AT INCISION SITES; RATES AT 7/10 CURRENTLY. PT HAS VIANNEY INTACT TO INCISION TO RUQ; LAP SITES WITH BANDAIDS IN PLACE. ABD AND GAUZE DRESSING IN PLACE OVER JAYSHREE DRAIN SITE. DRAIN HAS SMALL TO MOD AMOUNT OF CLEAR REDDISH DRAINAGE IN COMPRESSION BULB. IVF INFUSING WITHOUT ISSUES. PT REPORTS PASSING FLATUS, DENIES BM. CALL LIGHT WITHIN REACH.
--- NOTE | 2019-08-04 20:45 | NUR ---
DRESSING TO ABDOMEN REINFORCED TO ALL EDGES WITH PAPER TAPE. PT TOLERATED WELL. JAYSHREE DRAIN IN PLACE AND COMPRESSION BULB WITH SMALL AMOUNT OF REDDISH COLORED DRAINAGE NOTED. CALL LIGHT WITHIN REACH.
[2019-08-05] VITALS (7 sets, daily range): BP systolic 100–133; BP diastolic 66–83; PULSE 70–78; TEMP 97.5–98.3
--- NOTE | 2019-08-05 02:04 | NUR ---
PT REPORTS THAT THE POTASSIUM IN THE JUICE IS "TEARING UP MY STOMACH", STATES THAT HIS PAIN IS WORSE AFTER TAKING THE POTASSIUM. PT WAS PROVIDED WITH CRACKERS WITH ADMINISTRATION OF KCL. ENCOURAGED PT TO DISCUSS THIS WITH HIS DOCTOR IN THE AM. PT STATES HE WILL NOT BE FINISHING THE JUICE OR TAKING THE NEXT DOSE.
--- NOTE | 2019-08-05 05:29 | NUR ---
PT HAS HAD A GOOD NIGHT, SLEPT OFF AND ON THROUGH THE SHIFT. ATTEMPTED ORAL PAIN MEDICATION AT ONE POINT DURING THE NIGHT WHICH PT REPORTED DID NOT HELP WITH HIS PAIN TO ABD. CONTINUED GIVING IV MORPHINE FOLLOWING THAT, WHICH PT REPORTS REDUCES HIS PAIN FOR A WHILE. PT IS TOLERATING CLEAR LIQUIDS WITHOUT ISSUES, HAD SOME CRACKERS DURING THE NIGHT ALSO. DRESSING TO ABDOMEN WAS REINFORCED WITH PAPER TAPE AND PLACED OVER INCISION WITH VIANNEY AND LAP SITES; NO DRAINAGE NOTED. JAYSHREE DRAINING LIGHT RED CLEAR DRAINAGE. PT USES CALL LIGHT APPROPRIATELY.
--- NOTE | 2019-08-05 07:21 | NUR ---
REPORT JAYLAN TO AUGUSTINE YOU.
[2019-08-05 07:28] LABS: BASO % 0.2 % (0.0-2.0); EOS % 0.1 % (0-4.0); GRAN # 16.1 (1.4-6.5); GRAN % 87.7 % (42.2-75.2); LYMPH # 1.2 (1.2-3.4); LYMPH % 6.3 % (20.0-51.0); MEAN CELL VOLUME 91 fl (80.0-100.0); MEAN CORPUSCULAR HGB CONC 33 g/dl (33.0-37.0); MEAN PLATELET VOLUME 10.4 fl (7.4-10.4); MONO # 0.7 (0.1-0.6); PLATELET COUNT 442 K/mm3 (130-400); RED BLOOD COUNT 3.31 M/mm3 (4.20-5.60); REDCELL DISTRIBUTION WIDTH-CV 15.9 % (11.5-14.5)
[2019-08-05 07:34] LABS: INR 1.4 (0.8-3.0); PROTHROMBIN TIME 15.9 SECONDS (9.7-12.8)
[2019-08-05 07:38] LABS: ALBUMIN 2.8 gm/dL (3.5-5.0); BILIRUBIN,TOTAL 3.6 mg/dL (0.0-1.0); CALCIUM 7.6 mg/dL (8.4-10.2); CREATININE, serum 0.81 (0.66-1.25); MAGNESIUM 2.4 mg/dL (1.6-2.3); POTASSIUM 4.6 mmol/L (3.4-5.0); TOTAL PROTEIN 6.7 gm/dL (6.4-8.2)
[2019-08-05 07:40] LABS: HEMATOCRIT 30.2 % (42.0-52.0); HEMOGLOBIN 9.9 g/dl (13.5-18.0); MEAN CORPUSCULAR HEMOGLOBIN 30 pg (27.0-31.0)
--- NOTE | 2019-08-05 08:00 | NUR ---
PATIENT IS A&O. VSS. TELE INPLACE. PATIENT REPORTS PAIN IS BETTER THIS AM BUT WOULD LIKE SOMETHING FOR PAIN WITH HIS AM MEDS TO KEEP HIS PAIN UNDER CONTROL. GAVE PRN OXYCODONE WITH AM MEDS. ABDOMINAL DRESSING IS CD&I WITH GAUZE & HYPAFIX TAPE INPLACE. JAYSHREE DRAIN TO COMPRESSION WITH SMALL AMOUNTS OF BLOODY DRAINAGE NOTED. ABDOMEN IS DISTENDED WITH HYPOBOWL SOUNDS PRESENT. DENIES N/V. NOT PASSING GAS YET. TOLERATING CLEARS WELL. HEAD TO TOE ASSESSMENT COMPLETE. PATIENT SITTING UP IN BEDSIDE CHAIR WITH CALL LIGHT IN REACH.
--- NOTE | 2019-08-05 14:41 | NUR ---
Air Carrier Inspector met with patient to review discharge plan and revisit establishing primary care. Patient plans to return home upon discharge and states he is going to "strongly request" he go home tomorrow. Patient requested list of primary care providers at the [place] office. SW provided. Patient inquired about reapplying for Medicaid. SW contacted Erik, Financial Counselor who advised he may not be able to assist patient today. SHYANN provided patient with Erik's office number in case he discharges over the weekend. SHYANN encouraged patient to follow up with Erik early next week if interested in assistance with reapplying. SW to continue to follow as needed.
--- NOTE | 2019-08-05 16:00 | NUR ---
DR.SAVILLE KATZ, SEE ORDERS.
--- NOTE | 2019-08-05 21:00 | NUR ---
BEDSIDE SHIFT REPORT REC'D FROM JULES Carnes RN EARLIER. PT RESTING IN BED. IN GOOD HUMOR. O2 TUBING AT BEDISIDE. O2 SAT WNL. TURNED OFF O2. EMPTIED JAYSHREE DRAIN FOR LAST SHIFT- 25CC CLEAR YELLOW PINK DRAINGE. PT UP ABOUT ROOM INDEPENDENTLY. STEADY ON FEET. SEE ASSESSMENT. CALL LIGHT IN REACH. REFUSES SCD'S- ACTIVE.
[2019-08-06 03:34] VITALS: BP 125/70; PULSE 82; TEMP 99.1
--- NOTE | 2019-08-06 05:49 | NUR ---
PT WOKE UP IN PAIN. OTHERWISE NO CHANGE IN STATUS. SEE MAR FOR PAIN MED GIVEN. ASSISTED UP TO BR- VOIDED W/O DIFFICULTY. BACK TO BED. TOTAL JAYSHREE DRG 50CC THIS SHIFT AND 25CC PREVIOUS.
--- NOTE | 2019-08-06 07:06 | NUR ---
Bedside report from AUGUSTINE Valdivia. Pt was asleep in bed, awakened, did not appreciate being asked "so many questions". IVF infusing, breakfast tray at bedside, rated pain 7/10 after percoset from noc RN. Declined assistance with anything, provided warm blanket because he c/o being cold and shaking, oral temp 98.9*F. Call lt in reach.
[2019-08-06 07:48] LABS: BASO # 0.1 (0.0-0.2); BASO % 0.6 % (0.0-2.0); EOS # 0.3 (0.0-0.7); EOS % 1.7 % (0-4.0); GRAN # 12.5 (1.4-6.5); GRAN % 80.7 % (42.2-75.2); LYMPH # 1.6 (1.2-3.4); LYMPH % 10.4 % (20.0-51.0); MEAN CELL VOLUME 91 fl (80.0-100.0); MEAN CORPUSCULAR HGB CONC 32 g/dl (33.0-37.0); MEAN PLATELET VOLUME 10.4 fl (7.4-10.4); MONO # 0.8 (0.1-0.6); MONO % 5.2 % (1.7-9.3); PLATELET COUNT 470 K/mm3 (130-400); RED BLOOD COUNT 3.34 M/mm3 (4.20-5.60); REDCELL DISTRIBUTION WIDTH-CV 16.1 % (11.5-14.5)
[2019-08-06 07:52] VITALS: BP 108/57; PULSE 86; TEMP 98.3
[2019-08-06 07:53] LABS: HEMATOCRIT 30.3 % (42.0-52.0); HEMOGLOBIN 9.7 g/dl (13.5-18.0); MEAN CORPUSCULAR HEMOGLOBIN 29 pg (27.0-31.0)
[2019-08-06 08:08] LABS: INR 1.3 (0.8-3.0); PROTHROMBIN TIME 14.9 SECONDS (9.7-12.8)
[2019-08-06 08:12] LABS: ALBUMIN 2.4 gm/dL (3.5-5.0); BILIRUBIN,TOTAL 2.5 mg/dL (0.0-1.0); CALCIUM 7.3 mg/dL (8.4-10.2); CREATININE, serum 0.84 (0.66-1.25); POTASSIUM 3.9 mmol/L (3.4-5.0)
--- NOTE | 2019-08-06 09:51 | NUR ---
Emptied JAYSHREE Drain of 30 ml yellow serrous fluid, some red fibrous tissue in the line. Continued bulb suction.
--- NOTE | 2019-08-06 09:52 | NUR ---
Pt stated he could not tolerate the PO potassium, changed protocol order to IV.
[2019-08-06 12:12] VITALS: BP 107/58; PULSE 81; TEMP 98.6
--- NOTE | 2019-08-06 14:51 | NUR ---
Upon physician rounding, pt states he has improved since this morning, only ate the burger sumeet and ice cream for lunch. Enc pt to call when ready to amb diane.
[2019-08-06 16:19] VITALS: BP 117/64; PULSE 77; TEMP 97.6
--- NOTE | 2019-08-06 18:30 | NUR ---
Emptied JAYSHREE drain of bismark colored fluid, returned to bulb suction. Pt having pain with movement, percoset given. Declined to have mepilex dressing to left posterior hip changed, quarter-sized amount of shadowing, dated 07/29. Sig O visiting.
--- NOTE | 2019-08-06 19:20 | NUR ---
Bedside report to AUGUSTINE Maciel. Pt indep in rm, INT to R hand, declines SCDs, gripper socks, gown, underwear in place. Declined oral cares. Showed oncoming nurse JAYSHREE drain to bulb suction. Call lt in reach.
[2019-08-06 20:23] VITALS: BP 124/67; PULSE 76; TEMP 98.5
[2019-08-06 23:59] VITALS: BP 124/67; PULSE 77; TEMP 99
--- NOTE | 2019-08-07 04:35 | NUR ---
Patient has rested well throughout the night. PRN pain medication given when requested. Incision dressing CDI. JAYSHREE drain emptied as needed. Straw colored drainage noted. IV antibiotics given as ordered. Denies any further needs. Will continue to monitor.
[2019-08-07 04:58] VITALS: BP 128/70; PULSE 79; TEMP 98.4
[2019-08-07 07:07] LABS: MEAN CELL VOLUME 91 fl (80.0-100.0); MEAN CORPUSCULAR HGB CONC 32 g/dl (33.0-37.0); MEAN PLATELET VOLUME 10.4 fl (7.4-10.4); PLATELET COUNT 436 K/mm3 (130-400); RED BLOOD COUNT 3.33 M/mm3 (4.20-5.60); REDCELL DISTRIBUTION WIDTH-CV 15.7 % (11.5-14.5)
[2019-08-07 07:14] LABS: HEMATOCRIT 30.3 % (42.0-52.0); HEMOGLOBIN 9.8 g/dl (13.5-18.0); MEAN CORPUSCULAR HEMOGLOBIN 29 pg (27.0-31.0)
[2019-08-07 07:23] LABS: ALBUMIN 2.6 gm/dL (3.5-5.0); BILIRUBIN,TOTAL 2.8 mg/dL (0.0-1.0); CALCIUM 7.6 mg/dL (8.4-10.2); CREATININE, serum 0.84 (0.66-1.25); TOTAL PROTEIN 6.2 gm/dL (6.4-8.2)
[2019-08-07 08:55] VITALS: BP 118/64; PULSE 81; TEMP 98.6
[2019-08-07 09:09] LABS: ANISOCYTOSIS 1+; BAND 6 % (0-10); LYMPHOCYTE 9 % (20.0-51.0); NEUTROPHILS 77 % (42.0-75.2); PLATELET ESTIMATE INCREASED (NORMAL)
--- NOTE | 2019-08-07 11:54 | NUR ---
Bedside report from AUGUSTINE Maciel. Pt was bedresting, checked JAYSHREE Drain, stripped, to bulb suction with xyrnes-nyztk-asello drainage present. Pt in gown, boxers, gripper socks. Pt requested pain med, given, amb diane with PT. Sig O visiting and lunch arrived, reviewed plan to remove drain after lunch and next pain pill, agreeable. Pt's mood neutral today.
[2019-08-07 12:52] VITALS: BP 114/67; PULSE 73; TEMP 97.2
--- NOTE | 2019-08-07 14:03 | NUR ---
Emptied 30 ml yellow fluid from JAYSHREE drain with some opacity. Small amounts of sanguinous and serrous drainage from abdominal dressing, removed. Removed one retention suture, removed drain, leaked some terry colored drainage, applied two folded 4x4 gauze and secured with tegaderm. Dated. Pt ritesh well.
--- NOTE | 2019-08-07 14:18 | NUR ---
Changed dressing to left posterior hip area, was dated 07/29/19 at 2300. Cleansed with three iodine swabs, blotted dry with gauze, wound is crater-like, has pink wound bed surrounded by raised edge that has some crusting, after cleansing, some bloody drainage from capillaries occured. Applied new mepilex and dated. Pt needed convinced that dressing needed changed.
--- NOTE | 2019-08-07 15:35 | NUR ---
Slight shadowing of serrous drainage on gauze from drain site.
--- NOTE | 2019-08-07 15:43 | NUR ---
Informed pt of order for wound culture
--- NOTE | 2019-08-07 15:54 | NUR ---
Report to AUGUSTINE Brown.
[2019-08-07 16:55] VITALS: BP 126/70; PULSE 973; TEMP 98
--- NOTE | 2019-08-07 18:30 | NUR ---
Incisional pain relieved with prn Percocet.
[2019-08-07 20:42] VITALS: BP 119/71; PULSE 73; TEMP 97.7
[2019-08-07 23:28] VITALS: BP 126/67; PULSE 74; TEMP 97.8
--- NOTE | 2019-08-08 02:10 | NUR ---
Patient resting well this shift. PRN pain medication given at HS. Wound culture specimen obtained from left lower back and sent to lab. New dressing applied to site. Incisions are well approximated and open to air. JAYSHREE drain site has gauze and tegaderm. Drain was discontinued on day shift. Independent with toileting. Will continue to monitor patient.
[2019-08-08 04:29] VITALS: BP 113/64; PULSE 77; TEMP 97.7
[2019-08-08 07:41] VITALS: BP 111/64; PULSE 79; TEMP 97.8
--- NOTE | 2019-08-08 09:03 | NUR ---
Patient resting in bed at this time, call light in reach and pleasent mood. Given percocet for right abdominal pain and is effective. Will continue to monitor.
[2019-08-08] MEDS ORDERED: AMOXICILLIN 8751 TAB PO (10:09)
[2019-08-08] MEDS ORDERED: MIRALAX510G PO (10:13)
[2019-08-08] MEDS ORDERED: ROXICODONE 55 MG/TAB PO ×3 (10:14→16:24)
[2019-08-08 10:36] LABS: BASO # 0.1 (0.0-0.2); BASO % 0.7 % (0.0-2.0); EOS # 0.2 (0.0-0.7); EOS % 1.6 % (0-4.0); GRAN # 10.8 (1.4-6.5); GRAN % 77.3 % (42.2-75.2); HEMOGLOBIN 10.7 g/dl (13.5-18.0); LYMPH # 1.8 (1.2-3.4); LYMPH % 12.9 % (20.0-51.0); MEAN CELL VOLUME 89 fl (80.0-100.0); MEAN CORPUSCULAR HEMOGLOBIN 29 pg (27.0-31.0); MEAN CORPUSCULAR HGB CONC 32 g/dl (33.0-37.0); MEAN PLATELET VOLUME 9.9 fl (7.4-10.4); MONO # 0.7 (0.1-0.6); MONO % 5.1 % (1.7-9.3); PLATELET COUNT 483 K/mm3 (130-400); RED BLOOD COUNT 3.71 M/mm3 (4.20-5.60)
[2019-08-08 10:38] LABS: ALBUMIN 2.9 gm/dL (3.5-5.0); BILIRUBIN,TOTAL 2.5 mg/dL (0.0-1.0); CALCIUM 8.1 mg/dL (8.4-10.2); CREATININE, serum 0.8 (0.66-1.25); POTASSIUM 4.4 mmol/L (3.4-5.0)
[2019-08-08 10:49] LABS: HEMATOCRIT 33.1 % (42.0-52.0)
--- NOTE | 2019-08-08 10:49 | NUR ---
Regional Merchandising Manager attended clinical rounds with the team and patient to discharge home today. SW met with patient who advised he wants to establish primary care with Dr. Denis in [place]. Patient also reported he met with Poly, Financial Counselor to begin application process for Medicaid. SW presented and explained IM form to patient who verbalized understanding then provided signature. SW provided patient a copy then placed original in chart. Patient reports he has a ride home today. No additional needs at this time.
[2019-08-08 11:42] VITALS: BP 111/60; PULSE 75; TEMP 98.5
--- NOTE | 2019-08-08 13:54 | NUR ---
Patient resting in bed at this time, call light in reach awaiting for to review his labs.
[2019-08-08 16:25] VITALS: BP 121/73; PULSE 85; TEMP 97.5
--- NOTE | 2019-08-08 17:04 | NUR ---
Patient Health Summary, Discharge Summary, and Home Meds printed and reviewed with patient and girlfriend. Stressed importance of follow up appointments. Reviewed medications, provided printed Rx for Oxycodone. Belongings gathered by KATLYN/Latoya including phone and misc. items. 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 Patient transported via wheelchair by [employer] MACHINIST and seatbelted for ride home with friend. Patient denied any questions.
== END 2019-08-08 17:00 | disposition home or self-care (01) | DRG 414 ==
LOC: COL.ER 13:56 → MEDICAL 16:54 → SURG 16:54 → MEDICAL 19:35 → SURG 08-04 12:47
PROVIDERS: Emergency Medicine; Hospitalist; Nurse Practitioner Family; Physician Assistant; Surgery; ADMIT Student in an Organized Health Care Education/Training Program
PROC: 0FC98ZZ Extirpation of Matter from Common Bile Duct, Via Natural or Artificial Opening Endoscopic (ICD-10-PCS; 2019-07-30)
PROC: 0F798DZ Dilation of Common Bile Duct with Intraluminal Device, Via Natural or Artificial Opening Endoscopic (ICD-10-PCS; 2019-07-30)
PROC: BF131ZZ Fluoroscopy of Gallbladder and Bile Ducts using Low Osmolar Contrast (ICD-10-PCS; 2019-07-30)
PROC: 0FJ44ZZ Inspection of Gallbladder, Percutaneous Endoscopic Approach (ICD-10-PCS; 2019-08-04)
PROC: 0FT40ZZ Resection of Gallbladder, Open Approach (ICD-10-PCS; principal; 2019-08-04 14:30)
DX: K80.45 Calculus of bile duct with chronic cholecystitis with obstruction (principal); K85.90 Acute pancreatitis without necrosis or infection, unspecified; C22.0 Liver cell carcinoma; E87.6 Hypokalemia; Z87.891 Personal history of nicotine dependence
CPT/HCPCS: 99223-AI; 99231-AI; 99232-AI; 99239; A9284; C1769; C2625; J0330; J0692; J0696; J1100; J1170; J1644; J1650; J1885; J2270; J2405; J2543; J2704; J3010; J3480; J7030; Q9967